=== PATIENT | female | born 1965 | race Caucasian/White ===

== ENCOUNTER 2023-02-08 10:14 | Outpatient (AMB) | payer OTHER, SELFPAY ==
--- NOTE | 2023-02-08 10:26 | A.OFFVIS_ITS ---
Intake Vital Signs 02/08/23 10:42 Height 5 ft 5 in Weight 183 lb 6.793 oz BMI 30.5 BP 116/68 Blood Pressure Location Rt brachial Position Sitting Pulse 82 Pulse Source Pulse Oximeter Temp 97.2 F Temp Source Skin Intake Visit Reasons: Hand pain [employer] Manager Required: No Accompanied by: Self / Same As Patient Allergies ciprofloxacin [From Cipro HC] Allergy (Unknown, Verified 02/08/23 10:47) Rash hydrocortisone [From Cipro HC] Allergy (Unknown, Verified 02/08/23 10:47) Rash flagyl Allergy (Unknown, Uncoded 02/08/23 10:47) Rash HPI HPI Comments History of Present Illness Details The patient presents with pain and swelling in the right hand. She of course has known osteoarthritis at the CMC joints. Back in 2020 I injected her for some right thumb flexor tenosynovitis. There was triggering at the time but that has subsided. She gets some pain at the base of the thumb with heavier physical activity. Intermittently there is pain over the MCP joint of the right thumb, sometimes just at rest. It is not really predictable as to its occurrence. She has not really seen any swelling in that region although there is some enlargement at the thumb IP joint. She also has some bony enlargement at the base of the left thumb. Previously she had some trochanteric bursitis that was helped with the acquisition of a heel lift. She also had plantar fascial surgery in 2020 on the left foot. She does not take any medicines currently for this. She is on medicines for high blood pressure. [facility] Medical History (Updated 02/07/23 @ 21:58 by Julien Thomas MD) Allergic rhinitis, cause unspecified Depression Essential hypertension Reactive airway disease Surgical History (Updated 02/08/23 @ 10:41 by SREE Christiansen) H/O inguinal hernia repair History of surgery Hx of section Family History Mother HTN (hypertension) Osteoporosis Dementia Stroke Elevated cholesterol Father HTN (hypertension) Social History Alcohol intake: current Alcohol intake frequency: holidays/special occasions only Patient Tobacco Use Status: Former Tobacco user Current occupational status: employed 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 Negative nausea, abdominal pain, bowel changes, diarrhea, constipation and bloody stool. Skin/Breast Details: Negative for itching, rash, hives, Raynaud's symptoms, sun sensitivity, and skin cancer Zack/Lymph Details: Negative for excessive bruising or bleeding. Physical Exam Vital Signs: Last Vital Signs Temp 97.2 F 02/08/23 10:42 Pulse 82 02/08/23 10:42 BP 116/68 02/08/23 10:42 BMI result Body Mass Index 30.5 APPEARANCE: Patient in no acute distress EYES no redness, pupils equal and reactive to light, eyelids normal EXTREMITIES: No edema, no calf tenderness, normal peripheral pulses. SKIN: No inflammatory or neoplastic lesions. Normal color and turgor JOINT EXAM:?? Cervical Spine:.? Full range of motion without pain; no tenderness. Thoracic Spine:.? No scoliosis.? No tenderness on palpation. Lumbar Spine:.? Alignment normal.? Full range of motion without pain, no tenderness. Chest Wall:.? No tenderness, swelling, increased warmth or erythema. Hands:.? Right: There is some bony enlargement at the base of the thumb. That area is slightly tender. There is slight thickening at the thumb MCP and the thumb IP joints. The thumb MCP has some minimal tenderness along the flexor tendon. No redness or warmth. No thenar atrophy or sensory loss. There is some minimal bony enlargement at the D IP joints. Left: Mild nontender bony enlargement at the base of the thumb. There may be some slight bony enlargement at the thumb IP. No areas of tenderness, triggering, or soft tissue swelling. There is minimal bony enlargement at the 2nd 3rd PIP joints without tenderness. Wrists:.? Normal pain-free range of motion without tenderness, swelling, increased warmth or erythema. Elbows:. Normal pain-free range of motion without tenderness, swelling, increased warmth or erythema. Shoulders:.?? Full range of motion without pain. No tenderness, weakness, swelling, increased warmth or erythema. Hips:.? Full range of motion without pain. Hip bursa:.? No tenderness. Knees:.?? Normal pain-free range of motion without tenderness, swelling, increased warmth or erythema.? There is no effusion or crepitation Ankles:.? Normal pain-free range of motion without tenderness, swelling, increased warmth or erythema. Feet:? Normal pain-free range of motion without tenderness, swelling, increased warmth or erythema. ? Results Reviewed Results Reviewed: [facility] [place] Result Report Patient: Mai Jeong Date of Service: 04/18/21 ? ? Patient Gender: Female Ordering Provider: Freeman Chang : 1965 ? ? ? Final X-RAY EXAM OF FINGER(S), 2+ VIEWS Exam Date: 04/18/2021 1:48 PM Ordering Diagnosis: Chronic pain of right thumb ? Right thumb, 3 views. History chronic pain. There are arm degenerative changes in the 1st carpometacarpal joint, 1st metacarpophalangeal joint and thumb interphalangeal joint of the thumb. There are mild degenerative changes in the DIP joints of the 2nd 3rd and 5th fingers, which were included only on frontal view. No fractures, dislocations or destructive lesions. ? CONCLUSIONS: Multisite degenerative changes as detailed. ? Reading Radiologist: Electronically signed by: Geno Vargas MD on Assessment & Plan Assessment & Plan (1) Osteoarthritis of hands, bilateral: Code(s): M19.041 - Primary osteoarthritis, right hand; M19.042 - Primary osteoarthritis, left hand Plan The patient clearly has osteoarthritis mostly at the base of the thumbs. There is some involvement at the right thumb IP joint. She also has had flexor tenosynovitis at the right thumb flexor tendon that was injected in the past. I cannot convince myself that problem is currently getting much of her symptoms. The most bothersome pain seems to be the MCP pain which is not tender today. I have suggested she try some nightly use of diclofenac gel. I do not think there is enough reason to put her on steady doses of oral NSAIDs as that might also raise her blood pressure. She asked why she keeps getting these episodes of tendinitis, bursitis and arthritis. I told her I had no unifying diagnosis to offer her. She does not seem to have psoriatic arthritis or psoriasis which could given an asymmetric set of symptoms often with tendinitis. She also asks if there is a dietary manipulation may be helpful. I said there was no science showing evidence to strongly recommend any diet for control of arthritic symptoms. We also discussed that she could consider surgical treatment for the thumb on the right. At the present time we do not think there is enough symptoms to warrant that approach but she could call the future for referral. Medications: New diclofenac sodium 1% to affected joints 1 - 2 grams topical BID 100 grams 4RF Coding Level of Care Code Est Pt Level 3 (06085) Diagnoses Osteoarthritis of hands, bilateral M19.041; M19.042
[2023-02-08 10:42] VITALS: BP 116/68; PULSE 82; TEMP 36.2; BMI 30.5
== END 2023-02-08 11:09 | disposition home or self-care (01) ==
PROVIDERS: PCP Internal Medicine; Visit Provider Internal Medicine Rheumatology
DX: M19.041 Primary osteoarthritis, right hand (principal); M19.042 Primary osteoarthritis, left hand
CPT/HCPCS: 99213

== ENCOUNTER → 2023-02-08 10:14 | Outpatient (BNVA) | payer OTHER, SELFPAY | PROVIDERS: Visit Provider Internal Medicine Rheumatology ==